=== PATIENT | female | born 1975 | race American Indian/Alaskan Native ===

== ENCOUNTER 2016-10-14 13:51 | Outpatient (CLI) | payer BC | END 2016-10-14 13:52 | disposition home or self-care (01) | LOC: LABHHL 13:51 | PROVIDERS: ATTEND Obstetrics & Gynecology | DX: N76.0 Acute vaginitis (principal) | CPT/HCPCS: 87591 ==

== ENCOUNTER 2019-12-15 10:47 | Outpatient (CLI) | payer BC ==
[2019-12-15 11:25] LABS: Basophils % (Auto) 0.8 % (0.0-1.8); Eosinophils # (Auto) 0.1 K/mm3 (0.0-0.4); Eosinophils % (Auto) 1.6 % (0.0-4.3); Hemoglobin 11.5 gm/dl (10.1-14.3); Lymphocytes # (Auto) 1.2 K/mm3 (1.2-5.4); Lymphocytes % (Auto) 28.4 % (13.4-35.0); Mean Corpuscular HGB Conc 33 % (30-34); Mean Corpuscular Volume 88 fl (79-97); Monocytes # (Auto) 0.3 K/mm3 (0.0-0.8); Monocytes % (Auto) 7.9 % (0.0-7.3); Platelet Count 347 K/mm3 (140-440); Red Blood Count 3.98 M/mm3 (3.65-5.03); Red Cell Distribution Width 14.9 % (13.2-15.2)
[2019-12-15 11:42] LABS: Alanine Aminotransferase 10 units/L (7-56); Albumin 4.2 g/dL (3.9-5); Blood Urea Nitrogen 8 mg/dL (7-17); Calcium 9.4 mg/dL (8.4-10.2); Chol/HDL Ratio 3.64 %; HDL Cholesterol 57 mg/dL (40-59); Hemolysis Index 2; LDL Cholesterol,Direct 141 mg/dL (50-130)
[2019-12-15 11:44] LABS: BUN/Creatinine Ratio 16
[2019-12-15 11:56] LABS: Free T4 (Free Thyroxine) 1.02 ng/dL (0.76-1.46)
--- NOTE | 2019-12-15 12:47 | Mammography Report ---
BILATERAL DIGITAL SCREENING MAMMOGRAM WITH CAD HISTORY: SCREENING MAMMO TECHNIQUE: Routine digital mammographic imaging performed. This examination was interpreted with e benefit of Computer-aided Detection analysis. COMPARISON: None currently available. Patient reports prior mammograms at an outside facility in thes e will be requested. FINDINGS: Breast Density: heterogeneously dense breast parenchymal pattern which somewhat lessens the sensitivi ty of the evaluation. Digital CC and MLO views demonstrate no mammographic evidence of malignancy. IMPRESSION: No mammographic evidence of malignancy. Patient reports prior mammograms at an outside facility and these will be requested. An addendum will be added to this report once outside images are available. BIRADS 1: Negative. FURTHER INFORMATION: According to the [employer], yearly mammograms are recommend ed starting at age 40 and continuing as long as a woman is in good health. Clinical Breast Exams shou ld be part of a periodic health exam-about every 3 years for women in their 20s and 30s and every yea r for women 40 and over. Breast self exam is an option for women starting in their 20s. Any breast ch arleen noted on a breast self exam should be reported promptly to the patient's healthcare provider. Br east MRI is recommended for women with an approximately 20-25% or greater lifetime risk of breast can cer, including women with a strong family history of breast or ovarian cancer and women who have been treated for Hodgkin's disease. A negative Mammography report should not discourage follow up or biopsy of a clinically significant f inding and/or abnormality. Dense breast tissue may obscure small neoplasms. The patient will be entered into a reminder system with a target due date for the next screening mamm ogram. Signer Name: Rodriguez Wells MD Signed: 12/15/2019 12:42 PM Workstation Name: [id number]
== END 2019-12-15 10:48 | disposition home or self-care (01) ==
LOC: LAB 10:47
PROVIDERS: ATTEND Internal Medicine
DX: Z12.31 Encounter for screening mammogram for malignant neoplasm of breast (principal); Z00.00 Encounter for general adult medical examination without abnormal findings; Z13.220 Encounter for screening for lipoid disorders; Z13.29 Encounter for screening for other suspected endocrine disorder; Z13.21 Encounter for screening for nutritional disorder
CPT/HCPCS: 36415; 77067; 80053; 80061; 82306; 82607; 83036; 84439; 84443; 85025

== ENCOUNTER 2019-12-30 07:08 | Outpatient (CLI) | payer BC ==
--- NOTE | 2019-12-30 09:21 | Ultrasound Report ---
US thyroid scan INDICATION / CLINICAL INFORMATION: NONTOXIC SINGLE THYROID NODULE ATTN:THYROID. COMPARISON: None available. FINDINGS: RIGHT LOBE: Size = 4.8 cm. Normal echogenicity. No hyperemia LEFT LOBE: Size = 4.0 cm. Normal echogenicity. No hyperemia ISTHMUS: 0.4 cm. NODULES: No suspicious nodules requiring follow up or biopsy per TIRADS criteria are identified. IMPRESSION: 1. No significant sonographic abnormality of thyroid. No suspicious nodule identified. ACR TI-RADS Thyroid Nodule Recommendations TI-RADS 1 (0 points) ----- BENIGN. No Fine Needle Aspirate biopsy (FNA) or follow-up. TI-RADS 2 (1-2 points) -- NOT SUSPICIOUS. No FNA or follow-up. TI-RADS 3 (3 points) ----- MILDLY SUSPICIOUS. Follow up in 1 year if >= 1.5 cm. FNA if >= 2.5 cm. TI-RADS 4 (4-6 points) -- MODERATELY SUSPICIOUS. Follow up in 1 year if >= 1.0 cm. FNA if >= 1.5 cm. TI-RADS 5 (7+ points) --- HIGHLY SUSPICIOUS. Follow up in 1 year if >= 0.5 cm. FNA if >= 1.0 cm. NOTE: Nodules < 1 cm do not typically require follow-up or FNA unless there are suspicious features ( [place], 2015) Signer Name: Eladio Sanches MD Signed: 12/30/2019 9:17 AM Workstation Name: [id number]
== END 2019-12-30 07:09 | disposition home or self-care (01) ==
LOC: US 07:08
PROVIDERS: ATTEND Internal Medicine
DX: E04.1 Nontoxic single thyroid nodule (principal)
CPT/HCPCS: 76536

== ENCOUNTER 2020-01-13 12:10 | Outpatient (CLI) | payer BC ==
[2020-01-13 13:54] LABS: Hepatitis C Virus Antibody Non-Reactive (NonReactive)
== END 2020-01-13 12:11 | disposition home or self-care (01) ==
LOC: LAB 12:10
PROVIDERS: ATTEND Obstetrics & Gynecology
DX: Z11.3 Encounter for screening for infections with a predominantly sexual mode of transmission (principal); N89.8 Other specified noninflammatory disorders of vagina; Z11.51 Encounter for screening for human papillomavirus (HPV); Z01.411 Encounter for gynecological examination (general) (routine) with abnormal findings
CPT/HCPCS: 36415; 86592; 86689; 86706; 86803

== ENCOUNTER 2020-03-20 06:01 | Observation (INO) | payer BC ==
--- NOTE | 2020-03-14 10:28 | Anesthesia Consultation ---
Anesthesia Consult and Med Hx - Airway Anesthetic Teeth Evaluation: Good ROM Head & Neck: Adequate (Neck is soft and supple. Slight goiter appreciated. Midline trachea) Mental/Hyoid Distance: Adequate Mallampati Class: Class II Intubation Access Assessment: Good - Pre-Operative Health Status ASA Pre-Surgery Classification: ASA2 Proposed Anesthetic Plan: General Nerve Block: TAP - Pulmonary Hx Respiratory Symptoms: No (+2FS) Hx Sleep Apnea: No - Cardiovascular System Hx Hypertension: No - Central Nervous System Hx Psychiatric Problems: No - Endocrine Hx Thyroid Disease: Yes (Goiter) Hx Hypothyroidism: No (Euthyroid) Hx Hyperthyroidism: No - Hematic Hx Sickle Cell Disease: Yes (Trait only) - Other Systems Hx Alcohol Use: Yes (Occas) Hx Cancer: No - Additional Comments Anesthesia Medical History Comments: [id number] US negative. +Medical clearance on the chart. Patient states she's sensitive to meds
[2020-03-14 12:09] LABS: Basophils % (Auto) 0.6 % (0.0-1.8); Eosinophils # (Auto) 0.1 K/mm3 (0.0-0.4); Hematocrit 34.9 % (30.3-42.9); Hemoglobin 11.6 gm/dl (10.1-14.3); Lymphocytes # (Auto) 0.9 K/mm3 (1.2-5.4); Lymphocytes % (Auto) 18.5 % (13.4-35.0); Mean Corpuscular HGB Conc 33 % (30-34); Mean Corpuscular Volume 86 fl (79-97); Monocytes # (Auto) 0.4 K/mm3 (0.0-0.8); Platelet Count 387 K/mm3 (140-440); Red Blood Count 4.07 M/mm3 (3.65-5.03)
--- NOTE | 2020-03-18 17:47 | History and Physical Report ---
History of Present Illness Date of examination: 03/15/20 Chief complaint: Menorrhagia and uterine fibroids History of present illness: Menstrual History: LMP (date): 03/13/2020 LMP - Character: heavy Menarche: 9 Current Method of Contraception: None Date of Last Mammogram: 01/13/2020 Date of Last Pap Smear: 01/13/2020 Past History : 3 Term Births: 2 Living Children: 2 Spont. 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 History Operations: Tubal Ligation (2000) Cholecystectomy (2003) Abnormal PAP: negative Infection History HIV Risk Eval: no Hx of STD: None Current Allergies (reviewed today): No known allergies Past Medical History: Reviewed history from 01/13/2020 and no changes required: Enlarged thyroid (mgd by clinical education consultant) Past Surgical History: Reviewed history from 01/13/2020 and no changes required: Tubal Ligation (2000) Cholecystectomy (2003) Risk Factors: Smoked Tobacco Use: Never smoker Smokeless Tobacco Use: Never Passive smoke exposure: no Drug use: no HIV high-risk behavior: no Alcohol use: yes Exercise: yes Seatbelt use: 100 % Mammogram History: Date of Last Mammogram: 01/13/2020 PAP Smear History: Date of Last PAP Smear: 01/13/2020 Previous Tobacco Use: Signed On 02/17/2020 Smoked Tobacco Use: Never smoker Smokeless Tobacco Use: Never Passive smoke exposure: no Drug use: no HIV high-risk behavior: no Caffeine use: 0 drinks per day Previous Alcohol Use: Signed On 02/17/2020 Alcohol use: yes Type: OCC Drinks per day: social Exercise: yes Times per week: 3 Type of Exercise: walk Seatbelt use: 100 % Mammogram History: Date of Last Mammogram: 01/13/2020 PAP Smear History: Date of Last PAP Smear: 01/13/2020 Physical Exam Appearance: well developed, well nourished, no acute distress Other Exams Lungs: no rales, rhonchi, or wheezes Heart: S1, S2, no murmur, rub, or gallop Genitourinary Exam Uterus: deferred for EUA ENDOMETRIAL BIOPSY: - PROLIFERATIVE ENDOMETRIUM. - NO HYPERPLASIA OR MALIGNANCY IDENTIFIED. Impression & Recommendations: Problem # 1: Menorrhagia (ICD-626.2) (OEZ17-O80.0) Diagnosis explained to patient . Questions answered. Discussed with patient various medical and surgical therapies common for treatment: Hormonal/medical therapy,endometrial ablation or hysterectomy. Diagnosis explained to patient . Discussed with patient various medical, surgical and radiological therapies common for treatment including, but not limited to, myomectomy, hysterectomy and uterine artery embolization. Discussed risks and benefits of laparotomy, laparoscopy, vaginal and robotic assisted approaches for hysterectomies. Patient desires definitive treatment in the form of robot assisted laparoscopic total hysterectomy. The risks and alternatives for this surgery were reviewed with the patient. She was informed of the risks of the surgery including, but not limited to, pain, infection, bleeding possibly heavy enough to require a blood transfusion with associated risks of infections (hepatitis and HIV) and transfusion reactions, possible damage to bowel, bladder or ureter(s). Patient understands that this surgery with make her sterile. Indications to abort a robotic/laparoscopic procedure and perform an open procedure were explained. She desires ovarian conservation. She was informed she may require surgery later to have her ovaries removed for a benign or mailgnant condition Patient understands if her ovaries are removed she will become menopausal. Patient advised the small risks of spreading of malignancy if morcellation is required during the surgery patient understands and approves performing if necessary. Questions answered. Consent reviewed and signed The patient was instructed/informed the following: The normal length of hospital stay for this procedure. Nothing to eat or drink after midnight the evening prior to surgery. Clear liquids the day before surgery. Pre-op instruction sheets given. Wound care instructions given. Problem # 2: Fibroids of uterus; Intramural (ICD-218.1) (DWL16-O64.1) Diagnosis explained to patient . Questions answered. Discussed with patient various medical, surgical and radioloigal therapies common for treatment: Hormonal/medical therapy, fibroid embolization, removal of fibroids or hysterectomy She desires to proceed with hysterectomy with removal of both fallopian tubes and any other indicated procedures Medications and Allergies Allergies Allergy/AdvReac Type Severity Reaction Status Date / Time tape Allergy Blisters Uncoded 03/13/20 08:41 Home Medications Medication Instructions Recorded Confirmed Last Taken Type No Known Home Medications [No 03/13/20 03/13/20 Unknown History Reported Home Medications] Active Meds: Active Medications Acetaminophen (Acetaminophen 500 Mg Tab) 1,000 mg PO ONCE ONE Stop: 03/20/20 06:01 Celecoxib (Celecoxib 200 Mg Cap) 200 mg PO PREOP NR Stop: 03/20/20 06:01 Fentanyl (Fentanyl 100 Mcg/2 Ml Inj) 100 mcg IV ONCE ONE Stop: 03/20/20 06:01 Gabapentin (Gabapentin 300 Mg Cap) 300 mg PO PREOP NR Stop: 03/20/20 06:01 Lactated Ringer's (Lactated Ringers) 1,000 mls @ 125 mls/hr IV DIRECT AAKASH Cefazolin Sodium (Ancef/Sterile Water 2 Gm/20 Ml) 2 gm in 20 mls @ 80 mls/hr IV PREOP NR; Protocol Magnesium Oxide (Magnesium Oxide 400 Mg Tab) 400 mg PO ONCE ONE Stop: 03/20/20 06:01 Midazolam HCl (Midazolam 2 Mg/2 Ml Inj) 2 mg IV PREOP NR Stop: 03/20/20 23:59 Exam Vital Signs Temp Pulse Resp BP Pulse Ox 98.2 F 88 20 115/80 98 03/14/20 10:45 03/14/20 10:45 03/14/20 10:45 03/14/20 10:45 03/14/20 10:45 Results - Labs 03/14/20 09:50 Assessment and Plan - Patient Problems (1) Menorrhagia Status: Acute (2) Fibroid, uterine Status: Acute Qualifiers: Uterine leiomyoma location: intramural, submucous, and subserous Qualified Code(s): D25.1 - Intramural leiomyoma of uterus; D25.0 - Submucous leiomyoma of uterus; D25.2 - Subserosal leiomyoma of uterus
[~2020-03-20 06:01] MED LIST: ACETAMINOPHEN 500 MG TAB PO ONE; CELECOXIB 200 MG CAP PO NR; GABAPENTIN 300 MG CAP PO NR; LACTATED RINGERS 1,000 ML IV SCH; MAGNESIUM OXIDE 400 MG TAB PO ONE; MIDAZOLAM 2 MG/2 ML INJ IV NR; ceFAZolin/Water 2 GM/20 ML 2 GM/20 ML SYRINGE IV NR; fentaNYL 100 MCG/2 ML INJ IV ONE
[2020-03-20] MEDS ORDERED: BUPIVACAINE/PF (0.25%) 2.5 MG/ML 30 ML VIAL INFILTRATI ONE (06:27)
--- NOTE | 2020-03-20 06:27 | Anesthesia Day of Surgery ---
Anesthesia Day of Surgery - Day of Surgery Patient Examined: Yes Patient H&P Reviewed: Yes Patient is NPO: Yes
--- NOTE | 2020-03-20 06:27 | Anesthesia Consultation ---
Anesthesia Consult and Med Hx Date of service: 03/20/20 - Airway Anesthetic Teeth Evaluation: Good ROM Head & Neck: Adequate Mental/Hyoid Distance: Adequate Mallampati Class: Class II Intubation Access Assessment: Good - Pulmonary Exam CTA: Yes - Cardiac Exam Cardiac Exam: RRR - Pre-Operative Health Status ASA Pre-Surgery Classification: ASA2 Proposed Anesthetic Plan: General Nerve Block: cindy TAP Block - Pulmonary Hx Respiratory Symptoms: No (+2FS) Hx Sleep Apnea: No - Cardiovascular System Hx Hypertension: No - Central Nervous System Hx Psychiatric Problems: No - Endocrine Hx Thyroid Disease: Yes (Goiter) Hx Hypothyroidism: No (Euthyroid) Hx Hyperthyroidism: No - Hematic Hx Sickle Cell Disease: Yes (Trait only) - Other Systems Hx Alcohol Use: Yes (Occas) Hx Cancer: No - Additional Comments Anesthesia Medical History Comments: [id number] US negative. +Medical clearance on the chart. Patient states she's sensitive to meds
[2020-03-20] MEDS ORDERED: SODIUM CHLORIDE 0.9% 500 ML 500 ML ONE (06:28)
[2020-03-20] MEDS ORDERED: LIDOCAINE (1%) 10 MG/1 ML VIAL 20 ML MDV ONE (06:28)
[2020-03-20] MEDS ORDERED: dexAMETHasone 20 MG/5 ML VIAL ONE (06:28)
[2020-03-20] MEDS ORDERED: NEOMY 40 MG/POLYMYXIN B 200,000 UNITS/ML (GU) AMPULE IR ONE ×2 (07:25→08:34)
[2020-03-20] MEDS ORDERED: propofoL 200 MG/20 ML VIAL IV ONE (07:27)
[2020-03-20] MEDS ORDERED: ROCURONIUM 50 MG/5 ML INJ IV ONE (07:27)
[2020-03-20] MEDS ORDERED: KETOROLAC 30 MG/1 ML INJ ONE (08:22)
[2020-03-20] MEDS ORDERED: ONDANSETRON 4 MG/2 ML INJ ONE (08:22)
[2020-03-20] MEDS ORDERED: KETAMINE/STERILE WATER 50 MG/ML SYRINGE ONE (08:23)
[2020-03-20] MEDS ORDERED: SODIUM CHLORIDE 0.9% IRRIG SOLN 2000 ML IR ONE (08:34)
[2020-03-20] MEDS ORDERED: fentaNYL 100 MCG/2 ML INJ IV PRN (09:15)
[2020-03-20] MEDS ORDERED: ONDANSETRON 4 MG/2 ML INJ IV PRN ×2 (09:15→13:00)
[2020-03-20] MEDS ORDERED: PHENYLEPHRINE/NS 1,000 MCG/10 ML SYRINGE (OR USE) IV ONE (09:44)
--- NOTE | 2020-03-20 10:13 | Operative Report ---
Operative Report Operative Report: Date: 03/20/2020 Preoperative diagnosis: 1. Menorrhagia 2. Uterine fibroids 3. Body mass index of 28.3 kg/m Postoperative diagnosis: 1. Menorrhagia 2. Uterine fibroids 3. Body mass index of 28.3 kg/m Procedure: 1. Robotic-assisted laparoscopic total hysterectomy with bilateral salpingectomy Surgeon: Steph Baker MD Rand Sewer: Taryn Rodriguez Anesthesiologist: Dr. Cortés Anesthesia: General endotracheal anesthesia EBL: Approximately 50 mL Findings: EUA: Uterus palpated to approximately 15 weeks. Uterus was sounded to 13 cm. Grossly normal tubes and ovaries. Procedure: Patient was taken to the OR and placed in the supine position. General anesthesia was induced and an oral gastric tube was placed. Her neck and head were placed on foam support. Foam eye protection with goggles were secured in place. Then foam face protection was placed and secured. Foam shoulder pads were then positioned on her shoulders for Trendelenburg positioning. She was then placed in dorsolithotomy position. Exam under anesthesia as above. The abdomen and vagina were then prepped and draped in the usual sterile fashion. Timeout was performed. A Dalton catheter was inserted into the bladder with drainage of clear yellow urine. The operative speculum was introduced into the vagina and the anterior lip of the cervix was grasped with single-toothed tenaculum. The uterus was sounded to 13 cm. The cervix was progressively dilated to allow the large V care uterine manipulator. The bulb of the manipulator was inflated and the speculum and tenaculum were removed. The cup of the manipulator was placed around the cervix and the blue occluder of the manipulator was properly positioned in the vagina and secured. A laparotomy sponge that was saturated with a solution of polymyxin and saline was placed in the vagina to ensure pneumoperitoneum. Sterile gloves were placed and attention was turned to the abdomen. A 10 mm midline vertical supraumbilical incision was made approximately 10 cm superior to the elevated fundus of the uterus. A 10-12 mm trocar with the laparoscope and camera attached was introduced through this incision under direct visualization. The abdomen was insufflated. No obvious bowel, bladder, ureteral, or major vascular injury was noted. The patient was then placed in steep Trendelenburg position and the following trochars were placed under direct visualization: 8 mm robotic trochars were placed through incisions made in the bilateral midclavicular lower abdominal region approximately 10 cm lateral to the midline incision, and a 5 mm trocar was placed through an incision made in the right lower lateral pelvis. The 10 mm laparoscope was then replaced by a 5 mm laparoscope that was placed through the 5 millimeter lateral trocar. The 12 mm trocar was then removed and the Hank Gilbert fascial closure device was placed through the incision and a 0 Vicryl was placed through the fascia. Once the suture was secured the 12 mm trocar was reintroduced. Once the trochars were in the appropriate positions, the da Bryanna robot system was engaged. The EndoShears and bipolar device was placed through the 8 mm trochars and positioned then attention was turned to the console. The uterus was elevated and bilateral salpingectomy was performed, each tube was removed through the 5 mm trocar and sent to pathology in separate containers. She was noted to have an approximately 4-5 cm fibroid in the right broad ligament. Then the utero- ovarian ligaments were clamped,cauterized and incised bilaterally using 30 W of energy. Then the round ligaments were clamped, cauterized and incised bilaterally. The anterior leaf of the broad ligament was elevated and with careful blunt and sharp dissection the bladder flap was created and dissected away from the lower uterine segment and cervix. On the right, myomectomy was performed with care to stay away from the pelvic sidewall to prevent injury to the ureter. Fibroid was carefully dissected away from its shell and placed in the posterior cul-de-sac. The posterior leaf of the broad ligament was dissected away from the uterine vessels. The cup of the uterine manipulator was palpated both anteriorly and posteriorly. The bladder was further dissected away from the lower uterine segment. The uterine vessels were then clamped and cauterized bilaterally. Blanching of the uterus was then noted. Attention was again turned to the anterior lower uterine segment and the bladder was confirmed to be away from the operative field. Then attention was turned again to the posterior where the cup of the manipulator was palpated and a colpotomy was performed down to the cup. The incision was extended in the lateral position to the uterine vessels that were again clamped and cauterized and incised. Continuing along the cup of the manipulator in a circumferential manner the colpotomy was completed. The uterus, cervix and fibroid were then removed through the vaginal incision. The pelvis was irrigated with warm normal saline. A moist l aparotomy sponge was placed in the vagina to maintain pneumoperitoneum. The vagina cuff was reapproximated using V LOC 180 suture. Then a J stitch was performed to secure the suture. Again the pelvis was copiously irrigated with polymixin in warm normal saline. The laparotomy sponge was removed from the vagina. No obvious evidence of bowel, bladder, ureteral, or major vascular injury was noted. Once hemostasis was noted, Sobeida was applied to the operative field to ensure hemostasis. Right ovary appeared to be in a torsed position on the infundibulum pelvic ligament and concern for torsion, pain that may necessitate further surgery at a later date the decision was made to use a 3-0 Vicryl and attached the ovary up to the round ligament on the right with a simple stitch x1. Hemost asis was noted. Then the instruments were removed, the robot was disengaged. The 12 mm trocar was removed and the fascia was ligated with the 0 Vicryl suture that was placed at the beginning of the procedure. The patient was taken out of Trendelenburg position, the abdomen was desufflated, the remaining trochars were removed. Incisions were reapproximated using 4-0 Monocryl in a subcuticular manner. Surgiseal was placed over the other incisions. The vagina was then inspected, the cuff was palpated to be intact and no bleeding was noted and clear yellow urine was draining into the Dalton bag from the bladder at the end of the procedure. Counts were correct 3. Patient was taken to recovery room in stable condition.
[2020-03-20] MEDS ORDERED: LACTATED RINGERS 1,000 ML IV SCH (11:00)
[2020-03-20] MEDS ORDERED: traMADol 50 MG TAB PO PRN (13:00)
[2020-03-20] MEDS ORDERED: METOCLOPRAMIDE 10 MG/2 ML INJ IV PRN (13:00)
[2020-03-20] MEDS ORDERED: MORPHINE 2 MG/1 ML INJ IV PRN (13:00)
[2020-03-20] MEDS ORDERED: MORPHINE 4 MG/1 ML INJ IV PRN (13:00)
--- NOTE | 2020-03-20 13:53 | Post Anesthesia Evaluation ---
- Post Anesthesia Evaluation Patient Participated: Yes Airway Patent: Yes Stable Respiratory Function: Yes Nausea/Vomiting: No Temp > 96.8F: Yes Pain Manageable: Yes Adequeate Hydration: Yes Anesthesia Complications: No
[2020-03-20] MEDS: KETOROLAC 30 MG/1 ML INJ IV SCH ×2 (14:28→20:45)
[2020-03-20] MEDS: ACETAMINOPHEN 500 MG TAB PO SCH ×3 (14:28→22:53)
[2020-03-20] MEDS: ceFAZolin/NS 1 GM/50 ML 1 GM/50 ML BAG IV SCH (16:35)
[2020-03-20] MEDS ORDERED: ACETAMINOPHEN 325 MG TAB PO SCH (17:30)
[2020-03-20] MEDS ORDERED: FAMOTIDINE 20 MG/2 ML INJ IV SCH (22:00)
[2020-03-21] MEDS: ceFAZolin/NS 1 GM/50 ML 1 GM/50 ML BAG IV SCH (00:24)
[2020-03-21] MEDS: KETOROLAC 30 MG/1 ML INJ IV SCH ×2 (03:09→08:33)
[2020-03-21] MEDS: ACETAMINOPHEN 500 MG TAB PO SCH ×2 (06:41→08:36)
--- NOTE | 2020-03-21 07:55 | Progress Note ---
Assessment and Plan - Patient Problems (1) History of robot-assisted laparoscopic hysterectomy Current Visit: Yes Status: Acute Plan to address problem: Doing well, h/h pending, ? allow home if +void and h/h stable (2) Menorrhagia Current Visit: No Status: Acute (3) Fibroid, uterine Current Visit: No Status: Acute Qualifiers: Uterine leiomyoma location: intramural, submucous, and subserous Qualified Code(s): D25.1 - Intramural leiomyoma of uterus; D25.0 - Submucous leiomyoma of uterus; D25.2 - Subserosal leiomyoma of uterus Subjective - Subjective Date of service: 03/21/20 Principal diagnosis: POD#1 s/p RALTH w/ (B) salpingectomy Interval history: Menstrual History: LMP (date): 03/13/2020 LMP - Character: heavy Menarche: 9 Current Method of Contraception: None Date of Last Mammogram: 01/13/2020 Date of Last Pap Smear: 01/13/2020 Past History : 3 Term Births: 2 Living Children: 2 Spont. 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) Past Surgical History: Reviewed history from 01/13/2020 and no changes required: Tubal Ligation (2000) Cholecystectomy (2003) Risk Factors: Smoked Tobacco Use: Never smoker Smokeless Tobacco Use: Never Passive smoke exposure: no Drug use: no HIV high-risk behavior: no Alcohol use: yes Exercise: yes Seatbelt use: 100 % Mammogram History: Date of Last Mammogram: 01/13/2020 PAP Smear History: Date of Last PAP Smear: 01/13/2020 Previous Tobacco Use: Signed On 02/17/2020 Smoked Tobacco Use: Never smoker Smokeless Tobacco Use: Never Passive smoke exposure: no Drug use: no HIV high-risk behavior: no Caffeine use: 0 drinks per day Previous Alcohol Use: Signed On 02/17/2020 Alcohol use: yes Type: OCC Drinks per day: social Exercise: yes Times per week: 3 Type of Exercise: walk Seatbelt use: 100 % Mammogram History: Date of Last Mammogram: 01/13/2020 PAP Smear History: Date of Last PAP Smear: 01/13/2020 Physical Exam Appearance: well developed, well nourished, no acute distress Other Exams Lungs: no rales, rhonchi, or wheezes Heart: S1, S2, no murmur, rub, or gallop Genitourinary Exam Uterus: deferred for EUA ENDOMETRIAL BIOPSY: - PROLIFERATIVE ENDOMETRIUM. - NO HYPERPLASIA OR MALIGNANCY IDENTIFIED. Impression & Recommendations: Problem # 1: Menorrhagia (ICD-626.2) (ZCF62-B66.0) Diagnosis explained to patient . Questions answered. Discussed with patient various medical and surgical therapies common for treatment: Hormonal/medical therapy,endometrial ablation or hysterectomy. Diagnosis explained to patient . Discussed with patient various medical, surgical and radiological therapies common for treatment including, but not limited to, myomectomy, hysterectomy and uterine artery embolization. Discussed risks and benefits of laparotomy, laparoscopy, vaginal and robotic assisted approaches for hysterectomies. Patient desires definitive treatment in the form of robot assisted laparoscopic total hysterectomy. The risks and alternatives for this surgery were reviewed with the patient. She was informed of the risks of the surgery including, but not limited to, pain, infection, bleeding possibly heavy enough to require a blood transfusion with associated risks of infections (hepatitis and HIV) and transfusion reactions, possible damage to bowel, bladder or ureter(s). Patient understands that this surgery with make her sterile. Indications to abort a robotic/laparoscopic procedure and perform an open procedure were explained. She desires ovarian conservation. She was informed she may require surgery later to have her ovaries removed for a benign or mailgnant condition Patient understands if her ovaries are removed she will become menopausal. Patient advised the small risks of spreading of malignancy if morcellation is required during the surgery patient understands and approves performing if necessary. Questions answered. Consent reviewed and signed The patient was instructed/informed the following: The normal length of hospital stay for this procedure. Nothing to eat or drink after midnight the evening prior to surgery. Clear liquids the day before surgery. Pre-op instruction sheets given. Wound care instructions given. Problem # 2: Fibroids of uterus; Intramural (ICD-218.1) (GGF74-U28.1) Diagnosis explained to patient . Questions answered. Discussed with patient various medical, surgical and radioloigal therapies common for treatment: Hormonal/medical therapy, fibroid embolization, removal of fibroids or hysterectomy She desires to proceed with hysterectomy with removal of both fallopian tubes and any other indicated procedures Patient reports: appetite normal, pain well controlled Objective - Vital Signs Latest vital signs: Vital Signs Temp Pulse Resp BP Pulse Ox 03/21/20 05:06 98.4 F 88 18 97/56 99 03/21/20 00:14 98.6 F 91 H 18 119/71 98 03/20/20 20:19 98.6 F 93 H 18 124/76 97 03/20/20 16:34 98.2 F 84 16 120/84 99 03/20/20 11:35 97.5 F L 71 16 141/82 100 03/20/20 10:55 97.6 F 69 20 156/85 100 03/20/20 10:40 73 16 142/64 100 03/20/20 10:25 73 17 149/63 100 03/20/20 10:10 69 14 134/66 100 03/20/20 10:05 71 13 132/81 100 03/20/20 10:00 78 15 115/73 100 03/20/20 09:55 97.0 F L 82 18 110/72 100 Intake and Output 03/20/20 03/21/20 03/21/20 22:59 06:59 14:59 Intake Total 290 380 Output Total 1200 1000 Balance -910 620 Intake: IV 50 ANCEF/NS 1 GM/50 ML 1 gm 50 In 50 ml @ 100 mls/hr IV Q8H [facility] Rx#:[id number] Intake, Free Water 240 380 Output: Urine 1200 1000 Indwelling Catheter 1200 1000 Other: Total, Output Amount 1200 600 Voiding Method Indwelling Catheter - Exam Breasts: Present: deferred Cardiovascular: Present: Regular rate Lungs: Present: Clear to auscultation, Normal air movement Abdomen: Present: soft, normal bowel sounds. Absent: tenderness Extremities: Present: normal. Absent: tenderness, edema Incision: Present: normal, dry, intact (no s/s infection)
[2020-03-21 08:07] LABS: Hemoglobin 10.1 gm/dl (10.1-14.3)
[2020-03-21] MEDS ORDERED: IBUPROFEN 800 MG TAB PO PRN (10:00)
--- NOTE | 2020-03-21 12:02 | Discharge Summary ---
Providers - Providers Date of Admission: 03/20/20 10:43 Date of discharge: 03/21/20 Attending physician: DOMINIQUE DILL Primary care physician: LEIF YOUNG Hospitalization Condition: Good Procedures: RALTH (B) salpingectomy Hospital course: Unremarkable Disposition: DC-01 TO HOME OR SELFCARE - Discharge Diagnoses (1) History of robot-assisted laparoscopic hysterectomy Status: Acute (2) Menorrhagia Status: Resolved (3) Fibroid, uterine Status: Resolved Qualifiers: Uterine leiomyoma location: intramural, submucous, and subserous Qualified Code(s): D25.1 - Intramural leiomyoma of uterus; D25.0 - Submucous leiomyoma of uterus; D25.2 - Subserosal leiomyoma of uterus Core Measure Documentation - Palliative Care Palliative Care/ Comfort Measures: Not Applicable - Core Measures Any of the following diagnoses?: none Exam - Physical Exam Narrative exam: see Maintenance Groundskeeper note - Constitutional Vitals: Temp Pulse Resp BP Pulse Ox 98.4 F 89 18 114/71 99 03/21/20 05:06 03/21/20 07:59 03/21/20 05:06 03/21/20 07:59 03/21/20 05:06 - Psychiatric Psychiatric: appropriate mood/affect, intact judgment & insight, memory intact, cooperative Plan Activity: other (No sex, no driving. Ambulate ~1mile on your property a day. Use your incentive spirometer every hour while awake. Void every 1-2 hours) Weight Bearing Status: Full Weight Bearing Diet: regular (Eat small meals frequently, drink ~65oz water a day. Avoid spicy, fatty, high salt foods) Wound: open to air, keep clean and dry Special Instructions: no heavy lifting (Greater than 25lbs) Follow up with: LEIF YOUNG MD [Primary Care Provider] - 7 Days DOMINIQUE DILL MD [Staff Physician] - (As scheduled) Forms: [facility] Discharge Summary Prescriptions: Ibuprofen [Motrin 800 MG tab] 800 mg PO Q8H PRN #30 tablet PRN Reason: Pain, Mild (1-3) oxyCODONE /ACETAMINOPHEN [Percocet 5/325 mg] 1 - 2 tab PO Q6H PRN #14 tablet PRN Reason: Pain, Moderate (4-6)
[2020-03-21 12:37] VITALS: BP 123/69
[2020-03-21] MEDS ORDERED: oxyCODONE /ACETAMINOPHEN 5-325MG TAB PO PRN (13:00)
== END 2020-03-21 13:00 | disposition home or self-care (01) ==
LOC: OR 06:01 → OB 10:43
PROVIDERS: ADMIT Obstetrics & Gynecology; ATTEND Obstetrics & Gynecology
DX: N92.0 Excessive and frequent menstruation with regular cycle (principal); Z20.828 Contact with and (suspected) exposure to other viral communicable diseases; D25.1 Intramural leiomyoma of uterus; E01.0 Iodine-deficiency related diffuse (endemic) goiter; Z98.51 Tubal ligation status; Z90.710 Acquired absence of both cervix and uterus; Z90.49 Acquired absence of other specified parts of digestive tract; Z68.28 Body mass index [BMI] 28.0-28.9, adult; Z79.899 Other long term (current) drug therapy
CPT/HCPCS: 36415; 58572; 64450; 81025; 85014; 85018; 85025; 86850; 86900; 86901; 88302; 88307; 96361; 96365; 96366; 96375; 96376; A4217; G0378; J0690; J1100; J1885; J2250; J2370; J2405; J2704; J3010; J3490; J7040; J7120; S2900; U0003; 88309

== ENCOUNTER 2020-06-22 15:24 | Outpatient (CLI) | payer BC | END 2020-06-22 15:25 | disposition home or self-care (01) | LOC: LAB 15:24 | PROVIDERS: ATTEND Urology | DX: R31.29 Other microscopic hematuria (principal) | CPT/HCPCS: 36415; 87086 ==

== ENCOUNTER 2020-06-27 14:10 | Outpatient (CLI) | payer BC ==
--- NOTE | 2020-06-27 15:16 | Cat Scan Report ---
CT ABDOMEN AND PELVIS WITHOUT CONTRAST HISTORY: OTHER MICROSCOPIC HEMATURIA. COMPARISON: None. TECHNIQUE: CT images of the abdomen and pelvis were obtained without administration of intravenous co ntrast. All CT scans at this location are performed using CT dose reduction for ALARA by means of au tomated exposure control. FINDINGS: Lungs/bones: Lung bases are clear Abdomen/pelvis: Within limits of a noncontrast examination the liver, spleen, adrenal glands, pancre as and upper GI tract appear normal. Prior cholecystectomy is noted. Appendix appears normal. No sign ificant adenopathy is seen. Small scattered nodes in the mesentery however nonspecific. No renal or u reteral stones. Bladder is not well-distended. No acute bone findings are seen. A few pelvic phleboli ths are noted. IMPRESSION: 1. No definite renal stones. Distal ureters are difficult to visualize however no definite ureteral d ilatation or hydronephrosis. Signer Name: Juliocesar Matt MD Signed: 06/27/2020 3:11 PM Workstation Name: [id number]
== END 2020-06-27 14:11 | disposition home or self-care (01) ==
LOC: CT 14:10
PROVIDERS: ATTEND Urology
DX: R31.29 Other microscopic hematuria (principal); Z90.49 Acquired absence of other specified parts of digestive tract
CPT/HCPCS: 74176

== ENCOUNTER 2020-07-05 08:22 | Day surgery (SDC) | payer BC ==
[2020-06-28 13:26] LABS: Hematocrit 36.6 % (30.3-42.9); Hemoglobin 12.3 gm/dl (10.1-14.3); Mean Corpuscular HGB Conc 34 % (30-34); Mean Corpuscular Volume 85 fl (79-97); Platelet Count 314 K/mm3 (140-440); Red Blood Count 4.31 M/mm3 (3.65-5.03); Red Cell Distribution Width 15.9 % (13.2-15.2)
[2020-06-28 13:46] LABS: Alanine Aminotransferase 10 units/L (7-56); Blood Urea Nitrogen 13 mg/dL (7-17); Calcium 8.9 mg/dL (8.4-10.2); Hemolysis Index 7
[2020-06-28 14:07] LABS: BUN/Creatinine Ratio 19
[~2020-07-05 08:22] MED LIST changes: -ACETAMINOPHEN 500 MG TAB PO ONE; -CELECOXIB 200 MG CAP PO NR; -GABAPENTIN 300 MG CAP PO NR; -LACTATED RINGERS 1,000 ML IV SCH; -MAGNESIUM OXIDE 400 MG TAB PO ONE; -MIDAZOLAM 2 MG/2 ML INJ IV NR; -fentaNYL 100 MCG/2 ML INJ IV ONE
[2020-07-05] MEDS ORDERED: LACTATED RINGERS 1,000 ML ONE (09:10)
[2020-07-05] MEDS ORDERED: ONDANSETRON 4 MG/2 ML INJ IV PRN (09:44)
[2020-07-05] MEDS ORDERED: HYDROmorphone 1 MG/1 ML INJ IV PRN ×2 (09:44)
[2020-07-05] MEDS ORDERED: LACTATED RINGERS 1,000 ML IV SCH (09:45)
--- NOTE | 2020-07-05 09:47 | Anesthesia Consultation ---
Anesthesia Consult and Med Hx Date of service: 07/05/20 - Airway Anesthetic Teeth Evaluation: Good ROM Head & Neck: Adequate Mental/Hyoid Distance: Adequate Mallampati Class: Class II Intubation Access Assessment: Good - Pre-Operative Health Status ASA Pre-Surgery Classification: ASA2 Proposed Anesthetic Plan: General - Pulmonary Hx Smoking: No Hx Asthma: No Hx Respiratory Symptoms: No (+2FS) COPD: No Hx Pneumonia: No Hx Sleep Apnea: No - Cardiovascular System Hx Hypertension: No Hx Heart Attack/AMI: No Hx Pacemaker: No Hx Internal Defibrillator: No Hx Heart Murmur: No - Central Nervous System Hx Seizures: No Hx Back Pain: No Hx Psychiatric Problems: No - Gastrointestinal Hx Gastroesophageal Reflux Disease: Yes (Rare) - Endocrine Hx End Stage Renal Disease: No Hx Cirrhosis: No Hx Liver Disease: No Hx Thyroid Disease: Yes (Goiter) Hx Hypothyroidism: No (HX EUTHYROID.) Hx Hyperthyroidism: No - Hematic Hx Anemia: Yes Hx Sickle Cell Disease: Yes (Trait only) - Other Systems Hx Alcohol Use: Yes (Occas) Hx Substance Use: No Hx Cancer: No Hx Obesity: No - Additional Comments Anesthesia Medical History Comments: Was here [id number]. [id number] US negative. Patient states she's sensitive to meds
[2020-07-05] MEDS ORDERED: MIDAZOLAM 2 MG/2 ML INJ IV NR (10:00)
[2020-07-05] MEDS ORDERED: propofoL 200 MG/20 ML VIAL IV ONE (10:15)
[2020-07-05] MEDS ORDERED: LIDOCAINE PF 100 MG/5 ML (CARDIAC SYRINGE) IV ONE (10:15)
[2020-07-05] MEDS ORDERED: fentaNYL 100 MCG/2 ML INJ ONE (10:15)
[2020-07-05] MEDS ORDERED: dexAMETHasone 20 MG/5 ML VIAL ONE (10:17)
[2020-07-05] MEDS ORDERED: ONDANSETRON 4 MG/2 ML INJ ONE (10:17)
[2020-07-05] MEDS ORDERED: MIDAZOLAM 2 MG/2 ML INJ ONE (10:18)
[2020-07-05] MEDS ORDERED: IOHEXOL 240 MG/ML 200 ML IV ONE (11:18)
--- NOTE | 2020-07-05 11:27 | Short Stay Summary ---
Short Stay Documentation Date of service: 07/05/20 - History H&P: obtained from office - Allergies and Medications Current Medications: Allergies tape Allergy (Uncoded 03/13/20 08:41) Blisters Home Medications Medication Instructions Recorded Confirmed Last Taken Type Bacillus Coagulans/Inulin 1 cap PO BID 06/27/20 07/05/20 06/29/20 09:00 History [Probiotic with Prebiotic Cap] Iron 1 cap PO DAILY 06/27/20 07/05/20 06/29/20 09:00 History Vitamin D3 1 cap PO DAILY 06/27/20 07/05/20 06/29/20 09:00 History Active Medications Hydromorphone HCl (Hydromorphone 1 Mg/1 Ml Inj) 0.25 mg IV Q10MIN PRN PRN Reason: Pain, Moderate (4-6) Stop: 07/05/20 23:00 Hydromorphone HCl (Hydromorphone 1 Mg/1 Ml Inj) 0.5 mg IV Q10MIN PRN PRN Reason: Pain , Severe (7-10) Stop: 07/05/20 23:00 Cefazolin Sodium (Ancef/Sterile Water 2 Gm/20 Ml) 2 gm in 20 mls @ 80 mls/hr IV PREOP NR; Protocol Stop: 07/05/20 23:59 Lactated Ringer's (Lactated Ringers) 1,000 mls @ 125 mls/hr IV DIRECT AAKASH Last Admin: 07/05/20 09:20 Dose: 125 mls/hr Documented by: Midazolam HCl (Midazolam 2 Mg/2 Ml Inj) 2 mg IV PREOP NR Stop: 07/05/20 23:59 Last Admin: 07/05/20 09:59 Dose: 2 mg Documented by: Ondansetron HCl (Ondansetron 4 Mg/2 Ml Inj) 4 mg IV ONCE PRN PRN Reason: Nausea And Vomiting Stop: 07/05/20 20:00 - Brief post op/procedure progress note Date of procedure: 07/05/20 Pre-op diagnosis: hematuria Post-op diagnosis: other (urethral stenosis) Procedure: cysto, urethral dilation, rpg Anesthesia: GETA Surgeon: DENISHA BRUSH Estimated blood loss: none Condition: stable - Hospital course Hospital course: ct normal bactrim & ultram on chart - Disposition Condition at discharge: Stable Disposition: DC-01 TO HOME OR SELFCARE Short Stay Discharge Plan Follow up with: LEIF YOUNG MD [Primary Care Provider] - 7 Days
--- NOTE | 2020-07-05 11:30 | Operative Report ---
PREOPERATIVE DIAGNOSIS: Hematuria. POSTOPERATIVE DIAGNOSIS: Hematuria. PROCEDURE: Cystoscopy, bilateral retrograde pyelograms, hydrodistention (850 mL), urethral dilation. SURGEON: Jorgito Troncoso MD ANESTHESIA: General. ESTIMATED BLOOD LOSS: Minimal. FLUIDS: Crystalloid. COMPLICATIONS: No complications. INDICATIONS: This 45-year-old female seen in the office for hematuria, recurrent infection. She has a history of fibroid tumors, undergone a hysterectomy as well as two children, vaginal delivery. Denies smoking. She underwent CT of abdomen and pelvis, no upper tract abnormalities. Normal kidneys, status post cholecystectomy. DESCRIPTION OF PROCEDURE: The patient was taken to the operative suite, placed in a supine position. After adequate general anesthesia, placed in a dorsal lithotomy position, prepped and draped in a sterile fashion. Pancystourethroscopy was performed with a 22-Barbadian Storz cystoscope. She had some mild stenosis of her urethra. Urethral dilatation to 26-Barbadian was performed without difficulty. Bladder, no tumors or stones were noted. Bilateral retrograde pyelograms were obtained with an 8-[place] Agency catheter and 8 mL of contrast. No filling defects or obstruction. Hydrodistention to 850 mL. No petechiae or hemorrhage could be appreciated. Bladder was drained. She was extubated and taken to recovery room in stable condition. JOB# [id number] [facility]/RACHEL
--- NOTE | 2020-07-05 12:46 | Fluoroscopy Report ---
4 fluoroscopic images submitted Indication: Intraoperative localization Impression: 4 images of the abdomen were submitted for documentation purposes with radiology involve ment. Bilateral retrograde pyelograms were performed using approximately 10 mL of Omnipaque 300. Pl ease refer to the operative note for complete details. Fluoroscopic time: 5 seconds Signer Name: Candido Batista MD Signed: 07/05/2020 12:41 PM Workstation Name: [id number]
[2020-07-05 13:05] VITALS: BP 134/74
--- NOTE | 2020-07-05 17:25 | Post Anesthesia Evaluation ---
- Post Anesthesia Evaluation Patient Participated: Yes Airway Patent: Yes Stable Respiratory Function: Yes Nausea/Vomiting: No Temp > 96.8F: Yes Pain Manageable: Yes Adequeate Hydration: Yes Anesthesia Complications: No Block Receding Appropriately: Not Applicable Patient on Ventilator: No
--- NOTE | 2020-07-05 17:25 | Anesthesia Day of Surgery ---
Anesthesia Day of Surgery - Day of Surgery Patient Examined: Yes Patient H&P Reviewed: Yes Patient is NPO: Yes
== END 2020-07-05 12:55 | disposition home or self-care (01) ==
LOC: OR 08:22
PROVIDERS: ATTEND Urology
DX: R31.29 Other microscopic hematuria (principal); N35.82 Other urethral stricture, female; Z20.822 Contact with and (suspected) exposure to COVID-19; R35.0 Frequency of micturition; R39.15 Urgency of urination; K21.9 Gastro-esophageal reflux disease without esophagitis; E03.9 Hypothyroidism, unspecified; Z88.8 Allergy status to other drugs, medicaments and biological substances; Z79.899 Other long term (current) drug therapy; Z90.710 Acquired absence of both cervix and uterus; Z90.49 Acquired absence of other specified parts of digestive tract; Z72.89 Other problems related to lifestyle; Z98.890 Other specified postprocedural states; Z86.2 Personal history of diseases of the blood and blood-forming organs and certain disorders involving the immune mechanism
CPT/HCPCS: 36415; 52281; 74420; 80053; 85027; J0690; J1100; J2001; J2250; J2405; J2704; J3010; J7120; Q9967; U0003

== ENCOUNTER 2020-10-19 08:38 | Outpatient (CLI) | payer BC | END 2020-10-19 08:39 | disposition home or self-care (01) | LOC: LAB 08:38 | PROVIDERS: ATTEND Internal Medicine | DX: E27.0 Other adrenocortical overactivity (principal) | CPT/HCPCS: 36415; 82533 ==

== ENCOUNTER 2021-01-01 10:19 | Outpatient (CLI) | payer BC ==
[2021-01-01 11:20] LABS: Basophils % (Auto) 0.6 % (0.0-1.8); Eosinophils # (Auto) 0.2 K/mm3 (0.0-0.4); Hematocrit 36.4 % (30.3-42.9); Hemoglobin 12.7 gm/dl (10.1-14.3); Lymphocytes # (Auto) 1.1 K/mm3 (1.2-5.4); Lymphocytes % (Auto) 26.7 % (13.4-35.0); Mean Corpuscular HGB Conc 35 % (30-34); Mean Corpuscular Volume 90 fl (79-97); Monocytes # (Auto) 0.3 K/mm3 (0.0-0.8); Monocytes % (Auto) 8.5 % (0.0-7.3); Platelet Count 289 K/mm3 (140-440); Red Blood Count 4.04 M/mm3 (3.65-5.03); Red Cell Distribution Width 13.1 % (13.2-15.2)
[2021-01-01 11:45] LABS: Alanine Aminotransferase 13 units/L (7-56); Albumin 4.1 g/dL (3.9-5); Blood Urea Nitrogen 10 mg/dL (7-17); Chol/HDL Ratio 3.39 %; HDL Cholesterol 56 mg/dL (40-59); Hemolysis Index 6; LDL Cholesterol,Direct 129 mg/dL (50-130)
[2021-01-01 11:48] LABS: BUN/Creatinine Ratio 20
[2021-01-01 12:12] LABS: Bacteria,Urine 1+ /HPF (Negative); Bilirubin,Urine NEG (Negative); Blood,Urine NEG (Negative); Color,Urine Yellow (Yellow); Mucus,Urine FEW /HPF; Protein,Urine <15 mg/dL mg/dL (Negative); RBC,Urine < 1.0 /HPF (0.0-6.0); Urobilinogen,Urine < 2.0 mg/dL (<2.0)
[2021-01-04 14:51] LABS: Vitamin D, 25-OH, D2 <4 ng/mL
== END 2021-01-01 10:20 | disposition home or self-care (01) ==
LOC: LAB 10:19
PROVIDERS: ATTEND Internal Medicine
DX: Z00.00 Encounter for general adult medical examination without abnormal findings (principal); Z13.1 Encounter for screening for diabetes mellitus; E55.9 Vitamin D deficiency, unspecified; E04.9 Nontoxic goiter, unspecified
CPT/HCPCS: 36415; 80053; 80061; 81001; 82306; 82607; 83036; 85025; 87086

== ENCOUNTER 2021-01-24 15:11 | Outpatient (CLI) | payer BC ==
[2021-01-24 16:20] LABS: Hepatitis C Virus Antibody Non-Reactive (NonReactive)
== END 2021-01-24 15:12 | disposition home or self-care (01) ==
LOC: LAB 15:11
PROVIDERS: ATTEND Obstetrics & Gynecology
DX: Z01.411 Encounter for gynecological examination (general) (routine) with abnormal findings (principal); Z11.3 Encounter for screening for infections with a predominantly sexual mode of transmission; Z11.51 Encounter for screening for human papillomavirus (HPV)
CPT/HCPCS: 36415; 86592; 86689; 86803; 87350; 87529

== ENCOUNTER 2021-02-01 13:16 | Outpatient (CLI) | payer BC | END 2021-02-01 13:17 | disposition home or self-care (01) | LOC: SPVWC 13:16 | PROVIDERS: ATTEND Obstetrics & Gynecology | DX: Z12.31 Encounter for screening mammogram for malignant neoplasm of breast (principal) | CPT/HCPCS: 77063; 77067 ==

== ENCOUNTER 2021-02-08 14:44 | Outpatient (CLI) | payer BC ==
--- NOTE | 2021-02-09 13:57 | Ultrasound Report ---
ULTRASOUND PELVIS INDICATION / CLINICAL INFORMATION: R10.31. History pulling sensation in pelvis. TECHNIQUE: Transabdominal and Transvaginal. Duplex Color Doppler used: Yes. COMPARISON: None available FINDINGS: UTERUS: Surgically absent. RIGHT ADNEXA: The right ovary measures 3.3 x 2.3 x 1.5 cm. No significant ovarian cyst or mass. Josie l color Doppler blood flow. LEFT ADNEXA: The left ovary measures 3.6 x 3.1 x 2.9 cm. There is a complex heterogeneous ovarian les ion measuring 2.8 x 2.6 x 1.8 cm. Peripheral vascularity is noted. Peripheral nodularity is visualize d. Normal color Doppler blood flow. URINARY BLADDER: No significant abnormality. FREE FLUID: Trace free fluid within the posterior cul-de-sac. ADDITIONAL FINDINGS: None. IMPRESSION: 1. 2.8 cm complicated heterogeneous lesion within the left ovary. This could represent a hematoma. Fo llow-up ultrasound in 4-6 weeks and the first 2 weeks the patient's menstrual cycle is recommended to see if it persists. Scribed by: Sharon Alba RDMS, RVT Scribed: 02/08/2021 3:07 PM I have reviewed the images, agree with this report, and edited this report as needed. Signer Name: Eladio Sanches MD Signed: 02/09/2021 1:53 PM Workstation Name: [id number]
== END 2021-02-08 14:45 | disposition home or self-care (01) ==
LOC: US 14:44
PROVIDERS: ATTEND Obstetrics & Gynecology
DX: N83.202 Unspecified ovarian cyst, left side (principal)
CPT/HCPCS: 76830; 76856

== ENCOUNTER 2021-07-25 16:00 | Outpatient (CLI) | payer BC ==
[2021-07-25 17:05] LABS: Chol/HDL Ratio 4.2 %
== END 2021-07-25 16:01 | disposition home or self-care (01) ==
LOC: LAB 16:00
PROVIDERS: ATTEND Internal Medicine
DX: E78.5 Hyperlipidemia, unspecified (principal); E04.9 Nontoxic goiter, unspecified
CPT/HCPCS: 36415; 80061; 84443

== ENCOUNTER 2021-08-07 07:17 | Outpatient (CLI) | payer BC ==
[2021-08-07 08:43] LABS: Chol/HDL Ratio 4.2 %
== END 2021-08-07 07:18 | disposition home or self-care (01) ==
LOC: LAB 07:17
PROVIDERS: ATTEND Internal Medicine
DX: E78.5 Hyperlipidemia, unspecified (principal); N91.2 Amenorrhea, unspecified
CPT/HCPCS: 36415; 80061; 82670; 83001; 84144